=== PATIENT | female | born 1940 | race Caucasian/White ===

== ENCOUNTER → 2023-02-08 | Outpatient (CLI) | payer MEDICARE, OTHER, SELFPAY ==
--- NOTE | 2023-02-08 12:55 | US_ITS ---
INDICATION: UTI EXAMINATION: Ultrasound US Kidney(s) complete (eg, kidneys and bladder) TECHNIQUE: Pearson scale and color doppler images were obtained of the kidneys and urinary bladder. COMPARISON: None. FINDINGS: RIGHT KIDNEY: 8.2 cm in length. No Hydronephrosis. No sonographic evidence of a renal stone. Parapelvic cysts with no follow-up recommended. Normal vascular flow demonstrated with color Doppler. LEFT KIDNEY: 8.6 cm in length. No Hydronephrosis. No sonographic evidence of a renal stone. Parapelvic cysts with no follow-up recommended. Normal vascular flow demonstrated with color Doppler. URINARY BLADDER: Unremarkable. Bilateral ureteral jets were demonstrated. US/Kidney and Bladder IMPRESSION: Unremarkable renal ultrasound. Electronically Signed: Yossi Farnsworth DO at 17:37 EDT ,
== END | disposition home or self-care (01) ==
LOC: US 12:41
PROVIDERS: Referring Provider Urology; Visit Provider Urology
DX: N39.0 Urinary tract infection, site not specified (principal)
CPT/HCPCS: 76770